=== PATIENT | female | born 1990 | race Hispanic/Latino ===

== ENCOUNTER 2019-01-18 12:06 | Emergency (ER) | payer MEDICAID ==
[2019-01-18 12:18] VITALS: BP 128/82; PULSE 90; RESP 19; TEMP 97.8; O2SAT 98
--- NOTE | 2019-01-18 12:48 | ED PDOC ---
HPI: Chest Pain Chief Complaint (Provider): Chest pain History Per: Patient History/Exam Limitations: no limitations Onset/Duration Of Symptoms: Hrs (since 6 am this morning) Current Symptoms Are (Timing): Gone Now Quality: Sharp Associated Symptoms: Nausea, Dyspnea Exacerbating Factors: None Alleviating Factors: Other (Time) Additional Complaint(s): 28 yo female with history of ADHD, Bipolar disorder, MARIA LUISA, Depression, heavy alcohol use and panic attacks presents today after she reports she had a panic attack. She states that she came into the ED to make sure she was not having a heart attack. She states chest pain started around 6 am, located left side of chest, non-radiating, was a 9/10. States she tried taking 3 xanax pills without relief. This chest pain was associated with dypsnea, feeling of the world ending, and palpitations. She states that she also noted 1 episode of vomitus 2 days ago after heavy drinking, NBNB. Denies recent travel, fevers, chills, URI symptoms, dysuria, frequency and urgency. PMD: Dr. Olvera Home medications: Xanax, abilify, trazodone, prozac Surgical history: Appendectomy 5 years ago. Multiple cosmetic surgeries. - Risk Factors PE Risk Factors: Neg: Extremity Immobilization/Fx, Decreased Mobilty /Activity, Recent Major Surgery, Recent Hospitalization, Previous DVT, Previous PE, Recent Major Trauma <Bethany Leo - Last Filed: 01/18/19 14:46> <Courtney Espinoza - Last Filed: 01/19/19 11:47> Time Seen by Provider: 01/18/19 12:22 Chief Complaint (Nursing): Chest Pain Supervising Attending Note - Supervising Attending Note The Documented history was done by the: Physician Ordering Machine Operator, Attending Physician The documented physical exam was done by the: Physician Ordering Machine Operator, Attending Physician The documented procedures were done by the: Physician Ordering Machine Operator, Attending Physician - Attestation: I have personally seen and examined this patient.: Yes I have fully participated in the care of the patient.: Yes I have reviewed all pertinent clinical information: Yes <Courtney Espinoza - Last Filed: 01/19/19 11:47> Past Medical History Reviewed: Historical Data, Nursing Documentation, Vital Signs Vital Signs: Last Vital Signs Temp 97.8 F 01/18/19 12:17 Pulse 90 01/18/19 12:17 Resp 19 01/18/19 12:17 BP 128/82 01/18/19 12:17 Pulse Ox 98 01/18/19 12:17 Primary Care Provider: Brown Olvera - Medical History PMH: No Chronic Diseases - Surgical History Surgical History: Appendectomy (6 years ago) - Family History Family History: States: No Known Family Hx - Social History Current smoker - smoking cessation education provided: Yes (1 cigarette a week since high school) Alcohol: > 2 Drinks/Day Drugs: Denies <Bethany Leo - Last Filed: 01/18/19 14:46> Reviewed: Historical Data Vital Signs: Last Vital Signs Temp 97.8 F 01/18/19 12:17 Pulse 90 01/18/19 12:17 Resp 01/18/19 12:17 BP 128/82 01/18/19 12:17 Pulse Ox 98 01/18/19 14:48 <Courtney Espinoza - Last Filed: 01/19/19 11:47> - Home Medications Home Medications: Ambulatory Orders Medication Instructions Recorded Omeprazole 20 mg PO DAILY #30 capsule. 01/18/19 - Allergies Allergies/Adverse Reactions: Allergies Allergy/AdvReac Type Severity Reaction Status Date / Time No Known Allergies Allergy Verified 01/18/19 12:15 STEPHENIE Risk Score for UA/NSTEMI - STEPHENIE Risk Score Age > 64: NO 3 or more CAD Risk Factors: NO Known CAD (Stenosis greater than 50%): NO Aspirin use in past 7 days: NO Severe Angina: NO EKG ST changes greater than 0.5mm: NO Positive Cardiac Marker: NO (STEPHENIE score of 0) STEPHENIE Score: 0 Risk %: 5% <Bethany Leo - Last Filed: 01/18/19 14:46> Wells Criteria for PE - Wells Criteria for Pulmonary Embolism Clinical Signs and Symptoms of DVT: No P.E is #1 Diagnosis, or Equally Likely: No Heart Rate >100: No Immobilization at least 3 days;Surgery previous 4 weeks: No Previous, objectively diagnosed PE or DVT: No Hemoptysis: No Malignancy w/treatment within 6 months, or palliative: No Total Score: 0 <Bethany Leo - Last Filed: 01/18/19 14:46> Review of Systems Constitutional: Negative for: Fever, Chills, Sweats Eyes: Negative for: Vision Change Cardiovascular: Positive for: Chest Pain (left sided chest pain, non-radiating), Palpitations. Negative for: Orthopnea Respiratory: Positive for: Cough (dry cough), Shortness of Breath. Negative for: Hemoptysis, SOB with Exertion, Sputum, Wheezing Gastrointestinal: Positive for: Nausea, Vomiting (1 episode of vomitus 2 days ago), Abdominal Pain (epigastric abdominal pain), Diarrhea (1 episode of diarrhea yesterday) Genitourinary Female: Negative for: Dysuria, Frequency Skin: Negative for: Rash, Lesions Neurological: Negative for: Weakness, Numbness Psych: Positive for: Anxiety <Bethany Leo - Last Filed: 01/18/19 14:46> ROS Statement: Except As Marked, All Systems Reviewed And Found Negative <Courtney Espinoza - Last Filed: 01/19/19 11:47> Physical Exam - Reviewed Vital Signs Reviewed: Yes (within normal limits ) - Physical Exam Appears: Positive for: Non-toxic (Anxious) Head Exam: Positive for: NORMAL INSPECTION Skin: Positive for: Normal Color, Warm, Dry Cardiovascular/Chest: Positive for: Regular Rate, Rhythm. Negative for: Chest Non Tender, Edema, Murmur Respiratory: Positive for: Normal Breath Sounds. Negative for: Decreased Breath Sounds, Accessory Muscle Use, Crackles, Rales, Rhonchi, Stridor, Respiratory Distress Gastrointestinal/Abdominal: Positive for: Normal Exam, Bowel Sounds, Soft, Tenderness (Epigastric tenderness. ). Negative for: Distended, Guarding Neurological/Psych: Positive for: Awake, Alert <Bethany Leo - Last Filed: 01/18/19 14:46> - Laboratory Results Result Diagrams: 01/18/19 12:56 01/18/19 12:56 - ECG ECG: Positive for: Interpreted By Me ECG Rhythm: Positive for: Sinus Rhythm O2 Sat by Pulse Oximetry: 98 - Progress ED Course And Treament: 28 yo female with history of ADHD, Bipolar disorder, MARIA LUISA, Depression, alcohol use disorder and panic attacks presents to ED for chest pain. Differentials: ACS vs. GERD vs. panic attack Plan: -- Drug screen -- Upreg -- EKG -- Troponin -- CBC -- CMP -- Urine dip -- Alcohol level Patient reassessed @ 1425: patient reports feeling better with intermittent epigastric pain. Patient will be discharged with prescriptions and to follow up with PMD as outpatient. Referral given for GI specialist for GERD like symptoms. At this time GERD is high on the differential and Panic attack. Patient reports she will make an appointment with her psychiatrist. <Bethany Leo - Last Filed: 01/18/19 14:46> - Laboratory Results Result Diagrams: 01/18/19 12:56 01/18/19 12:56 Lab Results: Troponin I < 0.0120 ng/mL (0.00-0.120) 01/18/19 12:56 Total Bilirubin 0.4 mg/dl (0.2-1.3) 01/18/19 12:56 AST 28 U/L (14-36) 01/18/19 12:56 ALT 41 U/L (9-52) 01/18/19 12:56 Alkaline Phosphatase 78 U/L (38-126) 01/18/19 12:56 Total Protein 6.7 G/DL (6.3-8.2) 01/18/19 12:56 Albumin 4.0 g/dL (3.5-5.0) 01/18/19 12:56 Globulin 2.7 gm/dL (2.2-3.9) 01/18/19 12:56 Albumin/Globulin Ratio 1.5 (1.0-2.1) 01/18/19 12:56 <Courtney Espinoza - Last Filed: 01/19/19 11:47> Disposition - Patient ED Disposition Is Patient to be Admitted: No Doctor Will See Patient In The: Office - Disposition Disposition: Routine/Home Disposition Time: 14:31 <Bethany Leo - Last Filed: 01/18/19 14:46> Counseled Patient/Family Regarding: Studies Performed, Diagnosis <Courtney Espinoza - Last Filed: 01/19/19 11:47> - Clinical Impression Clinical Impression: Panic attack, GERD (gastroesophageal reflux disease) - Disposition Referrals: Brown Olvera MD [Primary Care Provider] - Agus Bermudez MD, PhD [Staff Provider] - Condition: GOOD Additional Instructions: CHANDA MERCER, thank you for letting us take care of you today. Your provider was Courtney Espinoza MD and you were treated for CHEST PAIN. The emergency medical care you received today was directed at your acute symptoms. If you were prescribed any medication, please fill it and take as directed. It may take several days for your symptoms to resolve. Return to the Emergency Department if your symptoms worsen, do not improve, or if you have any other problems. Please contact your doctor or call one of the physicians/clinics you have been referred to that are listed on the Patient Visit Information form that is included in your discharge packet. Bring any paperwork you were given at discharge with you along with any medications you are taking to your follow up visit. Our treatment cannot replace ongoing medical care by a primary care provider outside of the emergency department. Thank you for allowing the [facility] team to be part of your care today. Follow up with PMD within 1 week. Follow up with GI specialist - referral given to patient Prescriptions: Omeprazole 20 mg PO DAILY #30 capsule. Instructions: Acid Reflux (Gastroesophageal Reflux Disease), Adult (DC), Anxiety, Adult (DC) Forms: [employer] (Croatian)
[2019-01-18 13:02] LABS: HEMOGLOBIN 12.9 g/dL (12.0-16.0); MEAN CELL VOLUME 89.5 fl (81.0-99.0); MEAN CORPUSCULAR HEMOGLOBIN 30.5 pg (27.0-31.0); MEAN CORPUSCULAR HGB CONC 34.1 g/dL (33.0-37.0); RBC 4.21 Mil/uL (3.80-5.20); RED CELL DISTRIBUTION WIDTH 13.2 % (11.5-14.5); WHITE BLOOD COUNT 5.2 K/uL (4.8-10.8)
[2019-01-18 13:11] LABS: ALB/GLOB RATIO 1.5 (1.0-2.1); ALT/SGPT 41 U/L (9-52); AST/SGOT 28 U/L (14-36); BLOOD UREA NITROGEN 16 mg/dl (7-17); CALCIUM 8.8 mg/dL (8.4-10.2); GFR NON-AFRICAN AMERICAN > 60
[2019-01-18 13:28] LABS: OPIATES, UR NEGATIVE (NEGATIVE)
[2019-01-18 13:29] LABS: BARBITURATES, UR NEGATIVE (NEGATIVE); BENZODIAZEPINES, UR POSITIVE (NEGATIVE); PHENCYCLIDINE, UR NEGATIVE (NEGATIVE)
--- NOTE | 2019-01-19 11:54 | CARD ---
APPROVED REPORT Date of service: 01/18/2019 EKG Measurement Heart [id number] ID [id number] <Conclusion> Normal sinus rhythm Normal ECG
== END 2019-01-18 15:22 | disposition home or self-care (01) ==
LOC: H.ER 12:06 → SUPCPDRO 12:06 → H.ER 15:22
DX: F41.0 Panic disorder [episodic paroxysmal anxiety] (principal); K21.9 Gastro-esophageal reflux disease without esophagitis; F17.210 Nicotine dependence, cigarettes, uncomplicated; Z79.899 Other long term (current) drug therapy